=== PATIENT | male | born 1965 | race Caucasian/White ===

== ENCOUNTER → 2020-01-10 14:57 | Outpatient (CLI) | payer BC, SELFPAY ==
--- NOTE | ~2020-01-10 | XR_ITS ---
XR lumbar spine 2-3V 01/10/2020 15:39 Indication: Back pain Procedure: 3 views lumbar spine Comparison: No prior studies for comparison. Findings: Vertebral body and disc spaces are normal. Pedicles intact. Sacral foramen are symmetric. N o fracture or traumatic malalignment. No evidence for spondylolisthesis. Impression: 1: No significant abnormality of the lumbar spine. Reviewed, dictated and finalized at location A. Impression: 1: No significant abnormality of the lumbar spine.
--- NOTE | ~2020-01-10 | XR_ITS ---
EXAMINATION: XR thoracic spine 3V DATE: 01/10/2020 15:38 INDICATION: Back pain TECHNIQUE: AP, lateral and lateral swimmer's views of the thoracic spine were obtained. COMPARISON: None. FINDINGS: There is no fracture, dislocation, or subluxation. The vertebral body heights are normal. T here is mild loss of intervertebral disc space height at multiple levels in the thoracic spine. Small degenerative osteophytes project from the anterior endplates of multiple vertebral bodies. IMPRESSION: 1. Mild thoracic spondylosis. Reviewed, dictated and finalized at location A.
== END ==
PROVIDERS: PCP Physician Assistant; Visit Provider Physician Assistant
DX: M54.9 Dorsalgia, unspecified (principal); M47.814 Spondylosis without myelopathy or radiculopathy, thoracic region
CPT/HCPCS: 72072; 72100

== ENCOUNTER 2021-03-31 10:30 | Emergency (ER) | payer BC, SELFPAY ==
[2021-03-31 10:40] VITALS: BP 165/83; PULSE 80; RESP 14; TEMP 36.6; O2SAT 100
--- NOTE | 2021-03-31 10:53 | ED.URI ---
HPI - URI/Sore Throat General Chief Complaint: Upper Respiratory Infection Stated Complaint: Sinus Pain/Cough Source: patient Mode of arrival: ambulatory Limitations: no limitations History of Present Illness HPI Narrative: 55-year-old male presents to [facility] with complaints of sinus pressure, nasal congestion, cough and bilateral ear pressure for the past 2 weeks. Patient not tried taking any [id number] medications for symptoms. Patient reports that he has a history of migraines, had a recent MRI completed which showed that he had a sinus infection. Patient is a non-smoker. Patient denies fever, bodies, chills, nausea, vomiting or diarrhea. MD elicited complaint: cough, rhinorrhea, nasal congestion and sinus pain Onset (ago): week(s) (2) Able to tolerate fluids by mouth: Yes Exacerbating factors: nothing Associated symptoms: nasal congestion and cough Treatments prior to arrival: none Related Data Home Medications Medication Instructions Recorded Confirmed amlodipine 10 mg PO DAILY 03/31/21 03/31/21 divalproex 500 mg PO DAILY 03/31/21 03/31/21 icosapent ethyl [Vascepa] 2 g PO BID 03/31/21 03/31/21 rosuvastatin 10 mg PO DAILY 03/31/21 03/31/21 zolpidem 10 mg PO HS 03/31/21 03/31/21 Allergies Allergy/AdvReac Type Severity Reaction Status Date / Time No Known Allergies Allergy Unknown Verified 03/31/21 10:49 Review of Systems Constitutional: Constitutional: Denies chills, Denies fever(s) and Denies weakness ENT: Denies dysphagia, Reports nasal congestion and Denies sore throat Cardiovascular: Cardiovascular: Denies chest pain, Denies rapid heart rate, Denies radiating jaw, neck or arm pain and Denies slow heart rate Respiratory: Respiratory: Reports cough, Denies dyspnea and Denies wheezing Gastrointestinal: Gastrointestinal: Denies abdominal pain, Denies diarrhea, Denies nausea and Denies vomiting Integumentary/Breasts: Skin/Breast: Denies rash PMF Past Medical History Medical History (Updated 03/31/21 @ 10:58 by Janis Camejo APRN) Hyperlipidemia Hypertension Migraine Family History Family History (Updated 03/31/21 @ 10:55 by Janis Camejo APRN) Father Heart disease Social History Social History (Updated 03/31/21 @ 10:56 by Janis Camejo APRN) Smoking status: Never smoker Gender identity (if verbalized by the patient): Male Comments At time of signature, I agree with nursing past medical, surgical, social and family history. There is no relevant family history pertinent to the presenting complaint. Exam Const: General: healthy appearing and no acute distress Orientation/consciousness: patient oriented x3 HENMT: Head: normal to inspection General nose exam: Nasal discharge present Face and sinus: sinus tenderness frontal Mouth: Yes moist mucous membranes Throat: posterior oropharynx normal and uvula midline Other: Nasal congestion noted with mild nasal discharge noted Neck: Neck: no lymphadenopathy Resp: Effort & Inspection: normal respiratory effort Auscultation: clear to auscultation bilaterally Cardio: Rate: regular rate, not bradycardic and not tachycardic Rhythm: regular rhythm Skin: General skin exam: normal color Rashes: no rashes Neuro: General: patient oriented x3 and moves all extremities Extrem: General: normal to inspection Psych: Appearance: grossly normal Affect: normal affect Thought content: Yes Normal thought content present MDM - URI/Sore Throat MDM Narrative Medical decision making narrative: Patient agrees take medications as prescribed. Patient declines prescription for Claritin. Patient agrees to follow-up with primary care provider if symptoms not improved. Patient agrees to proceed to the emergency room if symptoms worsen Differential Diagnosis Differential diagnosis: Likely upper respiratory infection, otitis media and viral infection Critical Care Time Critical Care Time Critical Care Time: No Discharge Plan Disch
[2021-03-31 11:03] VITALS: BP 150/90
== END 2021-03-31 11:03 | disposition home or self-care (01) ==
PROVIDERS: Emergency Provider Nurse Practitioner Family; PCP Physician Assistant
DX: J32.9 Chronic sinusitis, unspecified (principal); E78.5 Hyperlipidemia, unspecified; I10 Essential (primary) hypertension
CPT/HCPCS: 99203; 99213; G0463

== ENCOUNTER 2023-01-18 10:36 | Emergency (ER) | payer OTHER, BC, SELFPAY ==
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
[2023-01-18 10:32] VITALS: BP 160/91; PULSE 79; RESP 18; TEMP 36.4; O2SAT 99
[2023-01-18 11:25] VITALS: BP 146/87; PULSE 86; RESP 22; O2SAT 96
[2023-01-18] MEDS: ACETAMINOPHEN 500 MG TABLET 1000 MG PO (12:11)
[2023-01-18 13:51] VITALS: BP 156/90; PULSE 77; RESP 14; O2SAT 99
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
== END 2023-01-18 13:52 | disposition home or self-care (01) ==
PROVIDERS: Emergency Provider Emergency Medicine; PCP Physician Assistant
DX: S13.4XXA Sprain of ligaments of cervical spine, initial encounter (principal); S39.012A Strain of muscle, fascia and tendon of lower back, initial encounter; E78.5 Hyperlipidemia, unspecified; I10 Essential (primary) hypertension; N20.0 Calculus of kidney; M47.816 Spondylosis without myelopathy or radiculopathy, lumbar region; M47.812 Spondylosis without myelopathy or radiculopathy, cervical region; V49.40XA Driver injured in collision with unspecified motor vehicles in traffic accident, initial encounter
CPT/HCPCS: 70450; 72125; 72131; 99284; A9270